=== PATIENT | male | born 1960 | race Caucasian/White ===

== ENCOUNTER → 2020-11-19 | Outpatient (CLI) | payer SELFPAY ==
[~2020-11-19] MED LIST: CEPHALEXIN500 M1 PO; LORTAB 5/500 501 TAB PO; MOTRIN800 MG PO; NO HOME MEDICATIONS; PROVENTIL0.09 MG/A1 IH; VICODIN 5/5001 UDTAB PO
== END ==
LOC: ZCOL.LAB 21:57
DX: E13.621 Other specified diabetes mellitus with foot ulcer (principal)

== ENCOUNTER 2021-04-10 09:12 | Inpatient (IN) | payer SELFPAY ==
[~2021-04-10] VITALS: Ht 172.7 cm; Wt 68.2 kg
[2021-04-10] MEDS ORDERED: LOPRESSOR 550 MG/TAB PO (09:50)
[2021-04-10] MEDS ORDERED: ASPIRIN 81M81 MG/TA2 PO (09:51)
[2021-04-10] MEDS ORDERED: NATURE'S BLEND100 M2 PO (09:51)
[2021-04-10] MEDS ORDERED: ELIQUIS 5MG PO (09:52)
[2021-04-10] MEDS ORDERED: FOLIC ACID800 MCG PO (09:52)
[2021-04-10 10:34] LABS: BASO % 0.4 % (0.0-2.0); EOS # 0.1 (0.0-0.7); EOS % 0.9 % (0-4.0); GRAN # 8.8 (1.4-6.5); GRAN % 79.8 % (42.2-75.2); HEMATOCRIT 48.6 % (42.0-52.0); HEMOGLOBIN 17.3 g/dl (13.5-18.0); LYMPH # 1.4 (1.2-3.4); LYMPH % 12.5 % (20.0-51.0); MEAN CELL VOLUME 100 fl (80.0-100.0); MEAN CORPUSCULAR HEMOGLOBIN 36 pg (27.0-31.0); MEAN CORPUSCULAR HGB CONC 36 g/dl (33.0-37.0); MEAN PLATELET VOLUME 10.5 fl (7.4-10.4); MONO # 0.6 (0.1-0.6); MONO % 5.7 % (1.7-9.3); PLATELET COUNT 211 K/mm3 (130-400); RED BLOOD COUNT 4.84 M/mm3 (4.20-5.60); REDCELL DISTRIBUTION WIDTH-CV 12.3 % (11.5-14.5)
[2021-04-10 11:06] LABS: ALBUMIN 3.4 gm/dL (3.5-5.0); BILIRUBIN,TOTAL 0.7 mg/dL (0.0-1.0); CALCIUM 8.8 mg/dL (8.4-10.2); CREATININE, serum 0.51 (0.66-1.25); POTASSIUM 4.5 mmol/L (3.4-5.0); TOTAL PROTEIN 6.7 gm/dL (6.4-8.2)
[2021-04-10 11:45] LABS: COLLECTION METHOD CLEAN CATCH
[2021-04-10 11:52] LABS: PH 6 (5-8); SQUAMOUS EPITHELIAL 0-2 /hpf; URINE APPEARANCE Clear; URINE BACTERIA Rare /hpf; URINE BILIRUBIN Negative (NEGATIVE); URINE BLOOD 1+ (NEGATIVE); URINE COLOR Yellow; URINE GLUCOSE Negative (NEGATIVE); URINE KETONE Negative (NEGATIVE); URINE LEUKOCYTE ESTERASE Negative (NEGATIVE); URINE NITRATE Positive (NEGATIVE); URINE PROTEIN(semi-quant) Negative (NEGATIVE); URINE RBC 0-2 /hpf; URINE UROBILINOGEN Negative (NEGATIVE)
--- NOTE | 2021-04-10 12:50 | NUR ---
Vancomycin Initial Dosing Pharmacy Note Ordering provider: Seng Whitaker MD Indication/duration: DIABETIC FOOT WOUND Relevant comorbidities: DM LABS: WBC 11.1, SCR 0.51, CRCL>100 Recommendation: VANCOMYCIN 15 MG/KG Maintenance dose: 1 gram every 12 hours Trough goal: 15 ug/mL. TROUGH 04/13 @1230
[2021-04-10 13:37] VITALS: BP 159/91; PULSE 81; TEMP 97.9
--- NOTE | 2021-04-10 14:35 | NUR ---
PT TO BE TRANSFERED BACK TO [facility] FOR FUTHER WORKUP AND TREATMENT.
--- NOTE | 2021-04-10 16:39 | NUR ---
REPORT CALLED TO FARIDEH ELIZALDE. [facility] LEFT WITH PT [id number].
== END 2021-04-10 16:20 | disposition short-term general hospital (02) | DRG 300 ==
LOC: COL.ER 09:12 → SURG 11:48
PROVIDERS: Family Medicine; ADMIT Internal Medicine
DX: E11.51 Type 2 diabetes mellitus with diabetic peripheral angiopathy without gangrene (principal); E87.1 Hypo-osmolality and hyponatremia; E11.621 Type 2 diabetes mellitus with foot ulcer; L97.519 Non-pressure chronic ulcer of other part of right foot with unspecified severity; F17.210 Nicotine dependence, cigarettes, uncomplicated; L03.031 Cellulitis of right toe; Z86.718 Personal history of other venous thrombosis and embolism; Z79.01 Long term (current) use of anticoagulants; Z79.84 Long term (current) use of oral hypoglycemic drugs; Z79.82 Long term (current) use of aspirin
CPT/HCPCS: 99223-AI; J1170; J2270; J2405; J2543; J3370; J7030; J7050

== ENCOUNTER → 2021-04-26 | Outpatient (CLI) | payer SELFPAY ==
[~2021-04-26] MED LIST changes: +ASPIRIN 81M81 MG/TA2 PO; +ELIQUIS 5MG PO; +FOLIC ACID800 MCG PO; +LOPRESSOR 550 MG/TAB PO; +NATURE'S BLEND100 M2 PO
== END ==
LOC: ZCOL.LAB 16:06
DX: E13.621 Other specified diabetes mellitus with foot ulcer (principal)

== ENCOUNTER 2021-12-27 14:01 | Emergency (ER) | payer MEDICAID ==
[~2021-12-27] VITALS: Ht 175.3 cm; Wt 52.7 kg
[2021-12-27 14:06] VITALS: TEMP 98
[2021-12-27 15:28] LABS: BASO % 0.4 % (0.0-2.0); EOS # 0.2 K/mm3 (0.0-0.7); EOS % 1.7 % (0.0-4.0); GRAN # 7.4 K/mm3 (1.4-6.5); HEMOGLOBIN 11.6 g/dl (13.5-18.0); LYMPH # 1.5 K/mm3 (1.2-3.4); LYMPH % 14.9 % (20.0-51.0); MEAN CELL VOLUME 99 fl (80.0-100.0); MEAN CORPUSCULAR HEMOGLOBIN 35 pg (27-31); MEAN CORPUSCULAR HGB CONC 35 g/dl (33.0-37.0); MEAN PLATELET VOLUME 10.1 fl (7.4-10.4); MONO # 0.8 K/mm3 (0.1-0.6); MONO % 7.8 % (1.7-9.3); PLATELET COUNT 265 K/mm3 (130-400); RED BLOOD COUNT 3.35 M/mm3 (4.20-5.60); REDCELL DISTRIBUTION WIDTH-CV 12.9 % (11.5-14.5)
[2021-12-27 15:46] LABS: ALBUMIN 3.2 gm/dL (3.4-4.8); BILIRUBIN,TOTAL 0.5 mg/dL (0.2-1.2); CREATININE, serum 0.72 mg/dL (0.72-1.25); POTASSIUM 3.7 mmol/L (3.5-4.5); TOTAL PROTEIN 7.5 gm/dL (6.2-8.1)
[2021-12-27 15:47] LABS: COLLECTION METHOD CLEAN CATCH
[2021-12-27 15:56] LABS: MUCOUS Present (NOT PRESENT); PH 6 (5-8); SQUAMOUS EPITHELIAL 0-2 /hpf (0-10); URINE APPEARANCE Clear (CLEAR/HAZY); URINE BACTERIA Rare /hpf (NONE SEEN); URINE BILIRUBIN Negative (NEGATIVE); URINE BLOOD 1+ (NEGATIVE); URINE COLOR Yellow (YELLOW); URINE GLUCOSE Negative (NEGATIVE); URINE KETONE Negative (NEGATIVE); URINE LEUKOCYTE ESTERASE Negative (NEGATIVE); URINE NITRATE Negative (NEGATIVE); URINE PROTEIN(semi-quant) Negative (NEGATIVE); URINE RBC 0-2 /hpf (0-2); URINE UROBILINOGEN Negative (NEGATIVE)
[2021-12-27] MEDS ORDERED: DULCOLAX STOOL100 MG PO (17:29)
[2021-12-27] MEDS ORDERED: MIRALAX238G PO (17:29)
[2021-12-27 17:38] VITALS: BP 168/118; PULSE 94
== END 2021-12-27 17:38 | disposition home or self-care (01) ==
LOC: COL.ER 14:01
PROVIDERS: Nurse Practitioner Primary Care
DX: K59.00 Constipation, unspecified (principal); F17.200 Nicotine dependence, unspecified, uncomplicated
CPT/HCPCS: J7030; Q9967

== ENCOUNTER 2022-02-23 09:19 | Day surgery (SDC) | payer MEDICAID ==
[~2022-02-23] VITALS: Ht 172.7 cm; Wt 46.1 kg
[~2022-02-23 09:19] MED LIST changes: +DULCOLAX STOOL100 MG PO; +MIRALAX238G PO
[2022-02-23] MEDS ORDERED: ELIQUIS 5MG PO (09:48)
[2022-02-23] MEDS ORDERED: TYLENOL 325MG325 MG PO (09:48)
[2022-02-23] MEDS ORDERED: EX-LAX15 MG PO (09:49)
[2022-02-23] MEDS ORDERED: COREG 25MG25 MG/TAB PO (09:49)
[2022-02-23] MEDS ORDERED: IRON TABLETS325 MG PO (09:50)
[2022-02-23] MEDS ORDERED: MAG OX 250 PO (09:50)
[2022-02-23] MEDS ORDERED: FOLIC ACID 11 MG/TA1 PO (09:50)
[2022-02-23] MEDS ORDERED: ALTACE 10MG TAB10 MG PO (09:51)
[2022-02-23] MEDS ORDERED: MOBIC 7.5MG7.5 MG PO (09:51)
[2022-02-23] MEDS ORDERED: VITAMIND3 5000 PO (09:52)
[2022-02-23 10:07] VITALS: BP 147/95; PULSE 98; TEMP 97.7
[2022-02-23 10:22] LABS: CALCIUM 10.2 mg/dL (8.4-10.2); CREATININE, serum 0.72 mg/dL (0.72-1.25); POTASSIUM 4.2 mmol/L (3.5-4.5)
[2022-02-23 11:10] VITALS: BP 110/78; PULSE 88; TEMP 97.2
--- NOTE | 2022-02-23 11:10 | NUR ---
PT arrived from procedure drowsy but orieneted. PT assisted from cart to chair by RN. Monitors applied and VSS. PT requested crackers, water and a coke. PT oriented to room and call alaniz. is in to speak with PT. Call alaniz within reach. Warm blankets applied.
[2022-02-23 11:25] VITALS: BP 117/87; PULSE 86
--- NOTE | 2022-02-23 11:25 | NUR ---
VSS. PT has finished his crackers and coke. Denies nausea. NO vomiting. Expressed desire to be discharged. Call alaniz remains within reach.
[2022-02-23 11:40] VITALS: BP 151/92; PULSE 81
--- NOTE | 2022-02-23 11:40 | NUR ---
VSS. BP has retured to pre-op level. IV discontinued. Catheter tip intact. Pressure dressing applied. NO redness or swelling noted. DC instructions and edcuational material reviewed with the PT, who verbalized understanding and signed the related paperwork. PT denied having any questions or concerns, and denied needing assistance changing into personal clothes. Call alaniz remains within reach. Brother contacted by RN per PT request.
--- NOTE | 2022-02-23 12:00 | NUR ---
PT dismissed from endo via wheelchair to the PT entrence by Lisa LOYOLA. PT has DC packet in hand and personal belongings. PT transferred into the care of his brother Kevin who is driving private truck.
== END 2022-02-23 12:00 | disposition home or self-care (01) ==
LOC: SDCO 09:19
PROVIDERS: Nurse Anesthetist, Certified Registered
DX: D12.7 Benign neoplasm of rectosigmoid junction (principal); D12.5 Benign neoplasm of sigmoid colon; K59.00 Constipation, unspecified; K91.89 Other postprocedural complications and disorders of digestive system; K56.7 Ileus, unspecified; R63.4 Abnormal weight loss; E11.9 Type 2 diabetes mellitus without complications; F17.210 Nicotine dependence, cigarettes, uncomplicated; Z86.16 Personal history of COVID-19; Z79.4 Long term (current) use of insulin; Z79.899 Other long term (current) drug therapy
CPT/HCPCS: J2704; J7030

== ENCOUNTER → 2022-06-16 | Outpatient (CLI) | payer MEDICAID ==
[~2022-06-16] MED LIST changes: +ALTACE 10MG TAB10 MG PO; +COREG 25MG25 MG/TAB PO; +EX-LAX15 MG PO; +FOLIC ACID 11 MG/TA1 PO; +IRON TABLETS325 MG PO; +MAG OX 250 PO; +MOBIC 7.5MG7.5 MG PO; +TYLENOL 325MG325 MG PO; +VITAMIND3 5000 PO
== END ==
LOC: COL.RAD 13:53
DX: I73.9 Peripheral vascular disease, unspecified (principal); I70.203 Unspecified atherosclerosis of native arteries of extremities, bilateral legs; N32.89 Other specified disorders of bladder; Z95.828 Presence of other vascular implants and grafts
CPT/HCPCS: Q9967